=== PATIENT | female | born 1965 | race Caucasian/White ===

== ENCOUNTER 2017-11-15 09:21 | Observation (INO) | payer MEDICAID ==
[2017-11-15] MEDS: hydrALAzine 20 MG INJ IV (10:15)
[2017-11-15 10:28] LABS: ADD MAN DIFF? NO
[2017-11-15 10:30] LABS: WHITE BLOOD COUNT 10.9 10^3/ul (4.8-10.8)
[2017-11-15 10:30] LABS: ABNORMAL IP MESSAGE 1; BASOPHIL # 0.1 10^3/ul (0.0-0.1); BASOPHILS % 0.5 % (0.0-2.0); EOSINOPHILS # 0.2 10^3/ul (0.0-0.5); HEMATOCRIT 42.5 % (37.0-47.0); HEMOGLOBIN 13.8 g/dl (12.0-16.0); LYMPHOCYTES # 5.1 10^3/ul (0.8-2.9); LYMPHOCYTES % 46.6 % (15.0-51.0); MEAN CORPUSCULAR HEMOGLOBIN 27.6 pg (29.0-33.0); MEAN CORPUSCULAR HGB CONC 32.5 g/dl (32.0-37.0); MEAN PLATELET VOLUME 10.1 fl (7.4-10.4); MONOCYTE # 0.7 10^3/ul (0.3-0.9); NEUTROPHIL # 4.8 10^3/ul (1.6-7.5); NEUTROPHILS % 44.5 % (39.0-77.0); PLATELET COUNT 335 10^3/UL (140-415); RED CELL DISTRIBUTION WIDTH 14.5 % (11.5-14.5)
[2017-11-15 10:47] LABS: ALANINE AMINOTRANSFERASE 35 IU/L (13-69); ALBUMIN 4.1 g/dl (3.3-4.9); ALBUMIN/GLOBULIN RATIO 1.05; ALKALINE PHOSPHATASE 95 IU/L (42-121); ANION GAP 11 (8-16); ASPARTATE AMINO TRANSFERASE 53 IU/L (15-46); BILIRUBIN,INDIRECT 0.3 mg/dl (0-1.1); BILIRUBIN,TOTAL 0.3 mg/dl (0.2-1.3); BLOOD UREA NITROGEN 18 mg/dl (7-20); CALCIUM 8.8 mg/dl (8.4-10.2); CARBON DIOXIDE 27 mmol/L (21-31); CHLORIDE 106 mmol/L (97-110); CREATININE 0.69 mg/dl (0.44-1.00); GLUCOSE 100 mg/dl (70-220); POTASSIUM 3.7 mmol/L (3.5-5.1); SODIUM 140 mmol/L (135-144)
[2017-11-15 10:53] LABS: INR 0.87; PROTIME 11.9 Sec (11.9-14.9); PT RATIO 0.9
[2017-11-15 10:54] LABS: PARTIAL THROMBOPLASTIN TIME 26.5 Sec (25.0-35.0)
[2017-11-15] MEDS: ONDANSETRON 4 MG INJ IV (11:52)
[2017-11-15] MEDS: morphine 4 MG/ML VIAL IV (11:52)
[2017-11-15 11:58] LABS: TROPONIN-I < 0.010 ng/ml (0.000-0.120)
[2017-11-15] MEDS: IOHEXOL 100 ML (12:41)
[2017-11-15] MEDS: SOD CHLORIDE 0.9% 100 ML (12:41)
[2017-11-15] MEDS ORDERED: MAGNESIUM HYDROXIDE 30ML CUP PO (14:00)
[2017-11-15] MEDS ORDERED: NACL 0.9% 3 ML SYG IV (14:00)
[2017-11-15] MEDS ORDERED: LORAZEPAM 2 MG INJ IV (14:00)
[2017-11-15] MEDS ORDERED: ONDANSETRON 4 MG INJ IV (14:00)
[2017-11-15] MEDS ORDERED: DOCUSATE SODIUM 100 MG CAP PO (14:00)
[2017-11-15] MEDS: AMLODIPINE 5 MG TAB PO (14:30)
[2017-11-15] MEDS ORDERED: DEXTROSE 50% 50 ML SYRINGE IV ×2 (15:30)
[2017-11-15] MEDS ORDERED: HYDROCODONE/APAP (5/325) TAB PO (15:30)
[2017-11-15] MEDS ORDERED: GLUCOSE GEL 15 GRAM TUBE PO ×2 (15:30)
[2017-11-15] MEDS ORDERED: GLUCAGON 1 MG INJ IM (15:30)
[2017-11-15] MEDS ORDERED: GLUCOSE GEL 15 GRAM TUBE BUCCAL (15:30)
[2017-11-15 15:43] LABS: HEMOGLOBIN A1C 6.2 % (0-5.9)
[2017-11-15] MEDS: ACETAMINOPHEN 325 MG TAB PO (17:48)
[2017-11-15] MEDS: INSULIN ASPART [NOVOLOG] 3 ML PEN SC ×3 (17:56→21:00)
[2017-11-16 07:26] LABS: ADD MAN DIFF? NO
[2017-11-16 07:39] LABS: WHITE BLOOD COUNT 8.1 10^3/ul (4.8-10.8)
[2017-11-16 07:39] LABS: BASOPHILS % 0.5 % (0.0-2.0); EOSINOPHILS # 0.1 10^3/ul (0.0-0.5); EOSINOPHILS % 1.6 % (0.0-7.0); HEMATOCRIT 42.4 % (37.0-47.0); HEMOGLOBIN 13.3 g/dl (12.0-16.0); LYMPHOCYTES # 2.8 10^3/ul (0.8-2.9); LYMPHOCYTES % 34.8 % (15.0-51.0); MEAN CORPUSCULAR HEMOGLOBIN 26.8 pg (29.0-33.0); MEAN CORPUSCULAR HGB CONC 31.4 g/dl (32.0-37.0); MEAN CORPUSCULAR VOLUME 85.3 fl (82.0-101.0); MEAN PLATELET VOLUME 9.8 fl (7.4-10.4); MONOCYTE # 0.5 10^3/ul (0.3-0.9); MONOCYTES % 6.4 % (0.0-11.0); NEUTROPHIL # 4.6 10^3/ul (1.6-7.5); NEUTROPHILS % 56.5 % (39.0-77.0); PLATELET COUNT 306 10^3/UL (140-415); RED BLOOD COUNT 4.97 10^6/ul (4.20-5.40); RED CELL DISTRIBUTION WIDTH 14.4 % (11.5-14.5)
[2017-11-16] MEDS: INSULIN ASPART [NOVOLOG] 3 ML PEN SC ×4 (07:45→21:00)
[2017-11-16 07:56] LABS: ALANINE AMINOTRANSFERASE 47 IU/L (13-69); ALBUMIN 3.9 g/dl (3.3-4.9); ALBUMIN/GLOBULIN RATIO 1.08; ALKALINE PHOSPHATASE 96 IU/L (42-121); ANION GAP 13 (8-16); ASPARTATE AMINO TRANSFERASE 67 IU/L (15-46); BILIRUBIN,INDIRECT 0.5 mg/dl (0-1.1); BILIRUBIN,TOTAL 0.5 mg/dl (0.2-1.3); BLOOD UREA NITROGEN 15 mg/dl (7-20); CALCIUM 8.4 mg/dl (8.4-10.2); CARBON DIOXIDE 26 mmol/L (21-31); CHLORIDE 102 mmol/L (97-110); CREATININE 0.64 mg/dl (0.44-1.00); GLUCOSE 107 mg/dl (70-220); POTASSIUM 4.1 mmol/L (3.5-5.1); SODIUM 137 mmol/L (135-144); TOTAL PROTEIN 7.5 g/dl (6.1-8.1)
[2017-11-16] MEDS: hydrALAzine 20 MG INJ IV (09:04)
[2017-11-16] MEDS: LOSARTAN 50 MG TAB PO (12:11)
[2017-11-17] MEDS: INSULIN ASPART [NOVOLOG] 3 ML PEN SC ×2 (08:00→12:00)
[2017-11-17] MEDS: LOSARTAN 50 MG TAB PO (08:16)
[2017-11-17] MEDS ORDERED: AMLODIPINE 5 MG TAB PO (12:30)
[2017-11-17] MEDS: CHLORTHALIDONE 25 MG TAB PO (15:17)
== END 2017-11-17 17:48 | disposition home or self-care (01) ==
LOC: E/R 09:21 → MS4 13:39
DX: I10 Essential (primary) hypertension (principal); R51 Headache; H02.842 Edema of right lower eyelid; E66.01 Morbid (severe) obesity due to excess calories; Z68.35 Body mass index [BMI] 35.0-35.9, adult; R73.03 Prediabetes; R55 Syncope and collapse; M54.2 Cervicalgia; E78.00 Pure hypercholesterolemia, unspecified
CPT/HCPCS: 36415; 70450; 70496; 80053; 82962; 83036; 83735; 84443; 84484; 85025; 85610; 85730; 93005; 93880; 96374; 96375; 97110; 97116; 97161; 99291-25; G0378

== ENCOUNTER 2017-12-27 15:08 | Emergency (ER) | payer MEDICAID ==
[2017-12-27] MEDS: SOD CHLORIDE 0.9% 1,000 ML IV (15:39)
[2017-12-27] MEDS: KETOROLAC 15 MG INJ IV (15:40)
[2017-12-27] MEDS: ONDANSETRON 4 MG INJ IV (15:40)
[2017-12-27 15:55] LABS: WHITE BLOOD COUNT 10.5 10^3/ul (4.8-10.8)
[2017-12-27 15:55] LABS: ADD MAN DIFF? NO; BASOPHILS % 0.2 % (0.0-2.0); EOSINOPHILS # 0.2 10^3/ul (0.0-0.5); EOSINOPHILS % 2.1 % (0.0-7.0); HEMATOCRIT 40.5 % (37.0-47.0); HEMOGLOBIN 12.7 g/dl (12.0-16.0); LYMPHOCYTES # 4.2 10^3/ul (0.8-2.9); LYMPHOCYTES % 39.7 % (15.0-51.0); MEAN CORPUSCULAR HGB CONC 31.4 g/dl (32.0-37.0); MEAN CORPUSCULAR VOLUME 86.2 fl (82.0-101.0); MEAN PLATELET VOLUME 9.2 fl (7.4-10.4); MONOCYTE # 0.8 10^3/ul (0.3-0.9); MONOCYTES % 7.2 % (0.0-11.0); NEUTROPHIL # 5.3 10^3/ul (1.6-7.5); NEUTROPHILS % 50.4 % (39.0-77.0); PLATELET COUNT 330 10^3/UL (140-415); RED CELL DISTRIBUTION WIDTH 14.6 % (11.5-14.5)
[2017-12-27 16:22] LABS: D-DIMER 606.21 ng/ml (<460)
[2017-12-27 16:24] LABS: ALANINE AMINOTRANSFERASE 49 IU/L (13-69); ALBUMIN 3.5 g/dl (3.3-4.9); ALBUMIN/GLOBULIN RATIO 0.89; ALKALINE PHOSPHATASE 97 IU/L (42-121); ANION GAP 13 (8-16); ASPARTATE AMINO TRANSFERASE 59 IU/L (15-46); BILIRUBIN,INDIRECT 0.2 mg/dl (0-1.1); BILIRUBIN,TOTAL 0.2 mg/dl (0.2-1.3); BLOOD UREA NITROGEN 16 mg/dl (7-20); CALCIUM 8.8 mg/dl (8.4-10.2); CARBON DIOXIDE 27 mmol/L (21-31); CHLORIDE 106 mmol/L (97-110); CREATININE 0.66 mg/dl (0.44-1.00); GLUCOSE 126 mg/dl (70-220); LIPASE 102 U/L (23-300); POTASSIUM 3.5 mmol/L (3.5-5.1); SODIUM 142 mmol/L (135-144); TOTAL PROTEIN 7.4 g/dl (6.1-8.1)
[2017-12-27 16:36] LABS: TROPONIN-I < 0.012 ng/ml (0.000-0.120)
[2017-12-27 17:23] LABS: PARTIAL THROMBOPLASTIN TIME 24.9 Sec (25.0-35.0); PROTIME 11.8 Sec (11.9-14.9); PT RATIO 0.9
[2017-12-27 17:24] LABS: INR 0.86
[2017-12-27] MEDS: SOD CHLORIDE 0.9% 100 ML (18:29)
[2017-12-27] MEDS: IOHEXOL 100 ML (18:30)
== END 2017-12-27 18:40 | disposition home or self-care (01) ==
LOC: E/R 15:08
DX: R10.84 Generalized abdominal pain (principal); R51 Headache; E66.01 Morbid (severe) obesity due to excess calories; I10 Essential (primary) hypertension; Z79.82 Long term (current) use of aspirin
CPT/HCPCS: 36415; 71045; 71275; 74176; 80053; 83690; 84484; 85025; 85378; 85610; 85730; 93005; 96361; 96374; 96375; 99285-25

== ENCOUNTER 2018-02-15 09:48 | Emergency (ER) | payer MEDICAID ==
[2018-02-15] MEDS: HYDROCODONE/APAP (5/325) TAB PO (11:19)
[2018-02-15] MEDS: KETOROLAC 60 MG INJ IM (11:19)
[2018-02-15] MEDS: METHYLPREDNISOLONE 125 MG INJ IM (11:19)
[2018-02-15 11:57] LABS: ADD UMIC YES; UR ASCORBIC ACID NEGATIVE (NEGATIVE); UR BACTERIA FEW /HPF (NONE SEEN); UR BILIRUBIN (Dip) NEGATIVE (NEGATIVE); UR BLOOD (Dip) NEGATIVE (NEGATIVE); UR CLARITY CLOUDY (CLEAR); UR COLOR YELLOW (YELLOW); UR GLUCOSE (Dip) NEGATIVE (NEGATIVE); UR KETONES (Dip) NEGATIVE (NEGATIVE); UR LEUKOCYTE ESTERASE (Dip) NEGATIVE Leu/ul (NEGATIVE); UR MUCUS FEW /HPF (NONE SEEN); UR NITRITE (Dip) NEGATIVE (NEGATIVE); UR RBC 1 /HPF (0-5); UR SPECIFIC GRAVITY (Dip) 1.019 (1.003-1.030); UR SQUAMOUS EPITHELIAL CELL MODERATE /HPF (FEW); UR TOTAL PROTEIN (Dip) NEGATIVE (NEGATIVE); UR UROBILINOGEN (Dip) NEGATIVE (NEGATIVE); UR WBC 3 /HPF (0-5)
== END 2018-02-15 17:09 | disposition home or self-care (01) ==
LOC: FTE 09:48
DX: M54.42 Lumbago with sciatica, left side (principal); I10 Essential (primary) hypertension; Z79.82 Long term (current) use of aspirin
CPT/HCPCS: 81001; 81025; 96372; 99284-25